=== PATIENT | female | born 1940 | race Caucasian/White ===

== ENCOUNTER 2018-04-13 08:17 | Day surgery (SDC) | payer MEDICARE, BC ==
[~2018-04-13 08:17] MED LIST: PROPOFOL 500 MG/50 ML EMU IV ONE
[2018-04-13 10:42] VITALS: TEMP 97.7
[2018-04-13 11:07] VITALS: RESP 20
[2018-04-13 11:18] VITALS: BP 140/71; PULSE 48; O2SAT 99
== END 2018-04-13 11:26 | disposition home or self-care (01) | DRG 951 ==
LOC: SURG 08:17
PROVIDERS: ATTEND Surgery
DX: Z12.11 Encounter for screening for malignant neoplasm of colon (principal); K57.32 Diverticulitis of large intestine without perforation or abscess without bleeding; Z86.010 Personal history of colon polyps; Z85.42 Personal history of malignant neoplasm of other parts of uterus; K64.8 Other hemorrhoids; K63.5 Polyp of colon
CPT/HCPCS: J2704